=== PATIENT | male | born 1990 | race Caucasian/White ===

== ENCOUNTER 2020-11-30 18:37 | Emergency (ER) | payer OTHER ==
[~2020-11-30] VITALS: Ht 182.9 cm; Wt 78.0 kg
[2020-11-30 21:00] VITALS: BP 124/73
== END 2020-11-30 21:38 | disposition home or self-care (01) ==
LOC: EMS 18:40
DX: I86.1 Scrotal varices (principal); F12.90 Cannabis use, unspecified, uncomplicated
CPT/HCPCS: 76870; 99284; Z7502